=== PATIENT | female | born 2000 | race Two or more races ===

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

== ENCOUNTER 2024-11-17 19:48 | Emergency (ER) | payer MEDICAID ==
[~2024-11-17] VITALS: Ht 142.2 cm; Wt 43.6 kg
--- NOTE | 2024-11-17 20:15 | ED.PDOC ---
HPI (NEURO) HPI Comments 24 y/o F, accompanied by parents, LAWSON with PMhx of cerebral palsy presents to the ED for s/p seizure. EMS reports, patient is coming from a green party where she was sitting down when she suddenly collapsed, hit her head, loss consciousness and began to convulse. Parent's report, patients last seizure to be [id number] ago with a recent seizure disorder diagnoses as [id number] ago. Patient complains of current right knee pain following incident. Parents deny nausea, vomiting, or headache. No other symptoms or modifying factors present at this time. Time Seen by MD: 20:07 Primary Care Provider: JEAN MARIE Reviewed Notes: Nurses Notes, Medications, Allergies Information Source: Patient, Relative (Mother), Emergency Med Personnel Mode of Arrival: Wheelchair Severity: Moderate Headache Severity: None Timing: Minutes Duration: Since onset Prehospital treatment: None Seizure Quality: Single Episodes Seizure Location: Generalized Onset: At rest Circumstances: Spontaneous Symptoms: Syncope Before: Normal During: Awake After: Normal Mentation History of: Seizure Disorder Modifying factors: Nothing Associated Signs and Symptoms: None Past Medical History Past Medical History (Other): cerebral palsy Surgical History: Denies all surgeries CHEMICAL RADIATION TECHNICIAN History: No Pertinent CHEMICAL RADIATION TECHNICIAN History Family History Family History: Unknown Social History Smoker: Non-Smoker Alcohol: Denies ETOH Use Drugs: Denies Drug Use Lives In: Home Constitutional: denies: chills, diaphoresis, fatigue, fever, malaise, sweats, weakness, others EENTM: denies: blurred vision, double vision, ear bleeding, ear discharge, ear drainage, ear pain, ear ringing, eye pain, eye redness, hearing loss, mouth pain, mouth swelling, nasal discharge, nose bleeding, nose congestion, nose pain, photophobia, tearing, throat pain, throat swelling, voice changes, others Respiratory: denies: cough, hemoptysis, orthopnea, SOB at rest, shortness of breath, SOB with excertion, stridor, wheezing, others Cardiovascular: denies: chest pain, dizzy spells, diaphoresis, Dyspnea on exertion, edema, irregular heart beat, left arm pain, lightheadedness, palpitations, PND, syncope, others Gastrointestinal: denies: abdomen distended, abdominal pain, blood streaked bowels, constipated, diarrhea, dysphagia, difficulty swallowing, hematemesis, melena, nausea, poor appetite, poor fluid intake, rectal bleeding, rectal pain, vomiting, others Genitourinary: denies: abnormal vagina bleeding, burning, dyspareunia, dysuria, flank pain, frequency, hematuria, incontinence, pain, , vagina discharge, urgency, others Neurological: denies: dizziness, fainting, headache, left sided numbness, left sided weakness, numbness, paresthesia, pre-existing deficit, right sided numbness, right sided weakness, seizure, speech problems, tingling, tremors, weakness, others Musculoskeletal: reports: others (right knee pain); denies: back pain, gout, joint pain, joint swelling, muscle pain, muscle stiffness, neck pain Integumetry: denies: bruises, change in color, change in hair/nails, dryness, laceration, lesions, lumps, rash, wounds, others Allergic/Immunocompromised: denies: Difficulty Healing, Frequent Infections, Hives, Itching, others Hematologic/Lymphatic: denies: anemia, blood clots, easy bleeding, easy b ruising, swollen glands, others Endocrine: denies: excessive hunger, excessive sweating, excessive thirst, excessive urination, flushing, intolerance to cold, intolerance to heat, unexplained weight gain, unexplained weight loss, others Psychiatric: denies: anxiety, bipolar disorder, depression, hopeless, panic disorder, schizophrenia, sleepless, suicidal, others All Other Systems: Reviewed and Negative Physical Exam General Appearance: No Apparent Distress, Normal HEENT: Normal ENT Inspection, Pharynx Normal Neck: Full Range of Motion, Non-Tender, Normal, Normal Inspection Respiratory: Chest Non-Tender, Lungs Clear, No Accessory Muscle Use, No Respiratory Distress, Normal Breath Sounds Cardiovascular: No Edema, No Murmur, No Gallop, Normal Peripheral Pulses, Regular Rate/Rhythm Breast Exam: Deferred Gastrointestinal: No Organomegaly, Non Tender, No Pulsatile Mass, Normal Bowel Sounds, Soft Genitalia: Deferred Pelvic: Deferred Rectal: Deferred Extremities: No calf tenderness, Normal capillary refill, Normal inspection, Normal range of motion, Non-tender, No pedal edema Musculoskeletal : Apperance: Normal Neurologic: Alert, job setter II-XII nml as Tested, No Motor Deficits, Normal Affect, Normal Mood, No Sensory Deficits Cerebellar Function: Normal Reflexes: Normal Skin: Dry, Normal Color, Warm Lymphatic: No Adenopathy Was a procedure done? Was a procedure done?: No Differential Diagnosis (SZ) Seizure: Hyperventilation, Psychogenic Seizure, Anticonvulsant Withdrawl, Closed Head Injury, CVA/TIA, Hypocalcemia, Hypoglycemia, Hyponatremia, Hypoxemia, Idiopathic, Mass Lesion, Meningitis, Epilepsy-Break Through, Epilepsy-Status, Other (status epilepticus) X-Ray, Labs, Meds, VS Vital Signs Date Time Temp Pulse Resp B/P (MAP) Pulse Ox O2 Delivery O2 Flow Rate FiO2 11/17/24 20:15 98.4 107 16 126/52 (76) 97 98.4 Time of 1ST Reevaluation: 20:37 Reevaluation 1ST: Unchanged Time of 2ND Reevaluation: 21:10 Reevaluation 2ND: Resolved Patient Education/Counseling: Diagnosis, Treatment, Prognosis, Need For Follow Up Family Education/Counseling: Diagnosis, Treatment, Prognosis, Need For Follow Up Additional Information Previous visits reviewed: 08/09/26 DX:BRONCHITIS The following tests were ordered, and results were reviewed by me: BMP, HEAD CT, RIGHT KNEE XR I reviewed and agreed with the following test results read by other providers: HEAD CT, RIGHT KNEE XR I discussed treatment and results with medical personnel and: patient AND PARENTS Comprehensive systems review obtained and negative except for what is stated in the HPI. pt has a history of seizures, with the same pattern, however, she did hit her head from falling with the seizure. the head ct is unremarkable, as is the right knee xray. she is stable for discharge to follow up with her neurologist. parents had refused blood work Departure 1 Departure Time of Disposition: 21:44 Impression: Primary Impression: Seizure Additional Impressions: Closed head injury Qualified Codes: S09.90XA - Unspecified injury of head, initial encounter Knee contusion Qualified Codes: S80.01XA - Contusion of right knee, initial encounter Disposition: HOME / SELF CARE / HOMELESS Condition: Good Discharged With: Self, Relative (Mother, father) Critical Care Note Critical Care Time?: Yes (55 min-critical care time only) Critical care comment: due to concerns for patient's condition deteriorating, the care required my highest level of attention and readiness to intervene. i assessed the patient's condition, ordered the proper tests and treatments, reassessed for response and reviewed the results. i communicated with medical personnel and formulated a plan of care. total critical care time does not include any procedures Stability Stability form required: No Heart Score Heart Score: Heart Score Response (Comments) Value History N/A 0 EKG N/A 0 Age N/A 0 Risk Factors N/A 0 Troponin N/A 0 Total 0 I personally scribed for WILBERT TIJERINA MD ([email or web address]) on 11/17/24 at 20:15. Electronically submitted by Milagros Hussein ([email or web address]). I personally scribed for WILBERT TIJERINA MD ([email or web address]) on 11/17/24 at 20:44. Electronically submitted by Milagros Hussein ([email or web address]). WILBERT TIJERINA MD November 17, 2024 20:15
[2024-11-17 20:30] VITALS: PULSE 78; RESP 18; TEMP 98.3; O2SAT 97
[2024-11-17] MEDS: levETIRAcetam 500 MG TAB PO ONE (21:15)
--- NOTE | 2024-11-17 21:24 | DVH ---
CLINICAL INDICATION: injury TECHNIQUE: 3 radiographic views of the right knee were obtained. Comparison: None FINDINGS/IMPRESSION: There is no evidence of acute fracture or dislocation. The patella Appears to be slightly high riding . The visualized joint space is well maintained. There is no radiopaque foreign body. Small suprapatellar effusion.
--- NOTE | 2024-11-17 21:33 | DVH ---
Procedure: CT HEAD WITHOUT CONTRAST Study Date and Requested Time: 11/17/2024 08:50 PM History: seizure, head injury Comparison: None Dose: CTDI: 54.21 mGy DLP: 1068.36 mGycm Technique: Multiplanar images obtained through the brain without intravenous contrast. 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 No hemorrhages, masses or mass effect. No midline shift. The pituitary gland, sella and parasellar r egions are unremarkable. The cerebellar tonsils are in normal position. The cerebellum is unremarkab le. The orbits and globes are unremarkable. Paranasal sinuses and mastoids are clear. There are No worri some calvarial lesions. Impression: No evidence of acute intracranial hemorrhage. 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
[2024-11-17 22:00] VITALS: BP 110/63; PULSE 81; RESP 13; O2SAT 96
[2024-11-17] MEDS: levETIRAcetam 500 MG/5ML ORAL SOLN UD PO ONE ×2 (22:08→22:33)
== END 2024-11-17 23:06 | disposition home or self-care (01) ==
LOC: ER 19:48 → EDBD 19:48 → EDUNIT# 19:48 → ER 22:50
DX: S80.01XA Contusion of right knee, initial encounter (principal); S06.9XAA Unspecified intracranial injury with loss of consciousness status unknown, initial encounter; G40.909 Epilepsy, unspecified, not intractable, without status epilepticus; X58.XXXA Exposure to other specified factors, initial encounter; Y93.89 Activity, other specified; Y92.89 Other specified places as the place of occurrence of the external cause; Y99.8 Other external cause status
CPT/HCPCS: 70450; 73562; 99291